=== PATIENT | female | born 1930 | race Caucasian/White ===

== ENCOUNTER 2017-11-26 19:36 | Inpatient (IN) ==
[2017-11-26] MEDS ORDERED: ACETAMINOPHEN 325 MG TABLET PO PRN (20:30)
[2017-11-26] MEDS ORDERED: GLUCAGON 1 MG VIAL IM PRN (20:39)
[2017-11-26] MEDS ORDERED: DEXTROSE 50% 25 GM/50 ML VIAL IV PRN (20:39)
[2017-11-26] MEDS: SODIUM CHLORIDE 0.9% 1,000 ML IV SCH (21:22)
[2017-11-26] MEDS: MORPHINE 2 MG/1 ML SYRINGE IV PRN (22:45)
[2017-11-27] MEDS: INSULIN LISPRO 100 UNIT/ML SUBCUT SCH ×4 (00:35→18:04)
[2017-11-27] MEDS: MORPHINE 2 MG/1 ML SYRINGE IV PRN ×3 (04:08→19:06)
[2017-11-27] MEDS: SODIUM CHLORIDE 0.9% 1,000 ML IV SCH ×4 (05:12→23:10)
[2017-11-27 05:42] LABS: Basophils % 0.2 % (0.0-0.8); Eosinophils # 0.1 10*3/uL (0.0-0.87); Eosinophils % 2.1 % (0.00-10.9); Hematocrit 30.6 VOL% (35.7-47.0); Hemoglobin 10.1 GM/DL (12.0-16.0); Immature Granulocytes % 0.7 %; Immature Granulocytes Absolute 0.04 #; Lymphocytes # 0.8 10*3/uL (1.4-4.0); Lymphocytes % 14.4 % (21.3-54.2); Mean Corpuscular Hemoglobin 29 PG (27-34); Mean Corpuscular Volume 87.7 FL (87-102); Mean Platelet Volume 9.6 FL (9.6-12.0); Monocytes # 0.5 10*3/uL (0.11-0.8); Monocytes % 8.1 % (1.7-12.7); Neutrophils # 4.3 10*3/uL (1.4-7.4); Neutrophils % 74.5 % (38.7-73.9); Platelet Count 170 T/CUMM (130-400); Red Blood Count 3.49 MC/CUMM (3.8-5.5); Red Cell Distribution Width 13.2 % (9.3-17.3); White Blood Count 5.8 T/CUMM (4-12)
[2017-11-27 06:33] LABS: Alanine Aminotransferase 220 U/L (13-56); Albumin 2.9 G/DL (3.4-5.0); Alkaline Phosphatase 222 U/L (45-117); Aspartate Amino Transferase 252 U/L (0-37); Bilirubin,Total < 0.39 MG/DL (0.2-1.0); Blood Urea Nitrogen 28 MG/DL (7-18); Calcium 8.2 MG/DL (8.5-10.1); Glucose 95 MG/DL (74-106); Osmolality,Calculated 286.3 MOS/KG (273-304); Potassium 4.3 MMOL/L (3.5-5.1); Sodium 141 MMOL/L (136-145); Total Protein 5.4 G/DL (6.4-8.3)
[2017-11-27] MEDS: MORPHINE ER 100 MG TABLET PO SCH ×2 (10:43→22:00)
[2017-11-27] MEDS: PANTOPRAZOLE 40 MG TABLET PO SCH (10:43)
[2017-11-27] MEDS: ATORVASTATIN 20 MG TABLET PO SCH (10:43)
[2017-11-27] MEDS: TRIAMTERENE/HCTZ 37.5-25 MG TABLET PO SCH (14:09)
[2017-11-27] MEDS: amLODIPine 5 MG TABLET PO SCH (14:09)
[2017-11-27] MEDS: traZODone 50 MG TABLET PO SCH (20:19)
[2017-11-27] MEDS ORDERED: DULoxetine 30 MG CAPSULE PO SCH (21:00)
[2017-11-28] MEDS: INSULIN LISPRO 100 UNIT/ML SUBCUT SCH ×4 (00:09→19:10)
[2017-11-28] MEDS: MORPHINE 2 MG/1 ML SYRINGE IV PRN ×3 (02:26→18:25)
[2017-11-28] MEDS: SODIUM CHLORIDE 0.9% 1,000 ML IV SCH ×4 (04:22→21:27)
[2017-11-28 05:57] LABS: Basophils % 0.5 % (0.0-0.8); Eosinophils # 0.1 10*3/uL (0.0-0.87); Eosinophils % 2.9 % (0.00-10.9); Hematocrit 29.9 VOL% (35.7-47.0); Hemoglobin 9.9 GM/DL (12.0-16.0); Immature Granulocytes % 1.2 %; Immature Granulocytes Absolute 0.05 #; Lymphocytes # 0.8 10*3/uL (1.4-4.0); Lymphocytes % 19.8 % (21.3-54.2); Mean Corpuscular HGB Conc 33.1 GM/DL (32-36); Mean Corpuscular Hemoglobin 29 PG (27-34); Mean Corpuscular Volume 88.2 FL (87-102); Mean Platelet Volume 9.5 FL (9.6-12.0); Monocytes # 0.4 10*3/uL (0.11-0.8); Monocytes % 10.3 % (1.7-12.7); Neutrophils # 2.7 10*3/uL (1.4-7.4); Neutrophils % 65.3 % (38.7-73.9); Platelet Count 148 T/CUMM (130-400); Red Blood Count 3.39 MC/CUMM (3.8-5.5); Red Cell Distribution Width 13.2 % (9.3-17.3); White Blood Count 4.2 T/CUMM (4-12)
[2017-11-28 06:20] LABS: Albumin 2.8 G/DL (3.4-5.0); Bilirubin,Total 0.7 MG/DL (0.2-1.0); Potassium 3.9 MMOL/L (3.5-5.1); Total Protein 5.2 G/DL (6.4-8.3)
[2017-11-28 06:25] LABS: INR 0.9
[2017-11-28] MEDS: LEVOTHYROXINE 150 MCG TABLET PO SCH (06:32)
[2017-11-28] MEDS ORDERED: LIDOCAINE 2% 5 ML VIAL ONE (09:50)
[2017-11-28] MEDS ORDERED: PROPOFOL 200 MG/20 ML VIAL IV ONE (09:50)
[2017-11-28] MEDS ORDERED: ONDANSETRON 4 MG/2 ML VIAL ONE (13:58)
[2017-11-28] MEDS ORDERED: KETAMINE 500 MG/10 ML VIAL ONE (14:00)
[2017-11-28] MEDS: ONDANSETRON 4 MG/2 ML VIAL IV PRN ×3 (14:01→22:36)
[2017-11-28] MEDS ORDERED: ONDANSETRON 4 MG/2 ML VIAL IV ONE (14:07)
[2017-11-28] MEDS: TRIAMTERENE/HCTZ 37.5-25 MG TABLET PO SCH (16:30)
[2017-11-28] MEDS: ATORVASTATIN 20 MG TABLET PO SCH (16:30)
[2017-11-28] MEDS: MORPHINE ER 100 MG TABLET PO SCH ×2 (16:31→20:52)
[2017-11-28] MEDS: PANTOPRAZOLE 40 MG TABLET PO SCH (16:31)
[2017-11-28] MEDS: amLODIPine 5 MG TABLET PO SCH (16:31)
[2017-11-28] MEDS ORDERED: PROMETHAZINE 25 MG/1 ML VIAL IM ONE (16:36)
[2017-11-28] MEDS: CIPROFLOXACIN INJ 400 MG in PREMIX 1 EACH IV SCH (18:26)
[2017-11-28] MEDS: traZODone 50 MG TABLET PO SCH (20:52)
[2017-11-29] MEDS: INSULIN LISPRO 100 UNIT/ML SUBCUT SCH ×4 (00:34→18:17)
[2017-11-29] MEDS: MORPHINE 2 MG/1 ML SYRINGE IV PRN ×3 (00:58→18:37)
[2017-11-29] MEDS: SODIUM CHLORIDE 0.9% 1,000 ML IV SCH ×3 (04:24→20:50)
[2017-11-29] MEDS: CIPROFLOXACIN INJ 400 MG in PREMIX 1 EACH IV SCH ×2 (05:50→18:17)
[2017-11-29 06:55] LABS: Basophils % 0.1 % (0.0-0.8); Hematocrit 28.5 VOL% (35.7-47.0); Hemoglobin 9.6 GM/DL (12.0-16.0); Immature Granulocytes Absolute 0.08 #; Lymphocytes # 0.9 10*3/uL (1.4-4.0); Lymphocytes % 10.7 % (21.3-54.2); Mean Corpuscular HGB Conc 33.7 GM/DL (32-36); Mean Corpuscular Hemoglobin 29 PG (27-34); Mean Corpuscular Volume 86.1 FL (87-102); Mean Platelet Volume 9.7 FL (9.6-12.0); Monocytes # 0.7 10*3/uL (0.11-0.8); Neutrophils # 6.6 10*3/uL (1.4-7.4); Neutrophils % 80.2 % (38.7-73.9); Platelet Count 165 T/CUMM (130-400); Red Blood Count 3.31 MC/CUMM (3.8-5.5); White Blood Count 8.2 T/CUMM (4-12)
[2017-11-29 07:21] LABS: Calcium 7.8 MG/DL (8.5-10.1); Osmolality,Calculated 281.3 MOS/KG (273-304); Potassium 3.2 MMOL/L (3.5-5.1)
[2017-11-29] MEDS: LEVOTHYROXINE 150 MCG TABLET PO SCH (07:34)
[2017-11-29] MEDS: ATORVASTATIN 20 MG TABLET PO SCH (08:57)
[2017-11-29] MEDS: TRIAMTERENE/HCTZ 37.5-25 MG TABLET PO SCH (08:57)
[2017-11-29] MEDS: PANTOPRAZOLE 40 MG TABLET PO SCH (08:58)
[2017-11-29] MEDS: MORPHINE ER 100 MG TABLET PO SCH ×2 (08:58→21:59)
[2017-11-29] MEDS: amLODIPine 5 MG TABLET PO SCH (08:58)
[2017-11-29] MEDS ORDERED: MAGNESIUM SULF RIDER 4 GM in PREMIX 1 EACH IV ONE (09:01)
[2017-11-29 09:06] LABS: Alanine Aminotransferase 91 U/L (13-56); Albumin 2.8 G/DL (3.4-5.0); Alkaline Phosphatase 160 U/L (45-117); Aspartate Amino Transferase 42 U/L (0-37); Bilirubin,Indirect 0.3 MG/DL (0.0-1.0); Bilirubin,Total < 0.39 MG/DL (0.2-1.0); Total Protein 5.3 G/DL (6.4-8.3)
[2017-11-29] MEDS: POTASSIUM CHLORIDE RIDER 10 MEQ in PREMIX 1 EACH IV SCH ×5 (14:02→17:07)
[2017-11-29] MEDS: traZODone 50 MG TABLET PO SCH (20:25)
[2017-11-30] MEDS: INSULIN LISPRO 100 UNIT/ML SUBCUT SCH ×4 (00:15→17:20)
[2017-11-30] MEDS: MORPHINE 2 MG/1 ML SYRINGE IV PRN (01:03)
[2017-11-30] MEDS: SODIUM CHLORIDE 0.9% 1,000 ML IV SCH ×2 (04:23→08:20)
[2017-11-30 04:52] LABS: Basophils % 0.3 % (0.0-0.8); Eosinophils % 0.2 % (0.00-10.9); Hemoglobin 9.8 GM/DL (12.0-16.0); Immature Granulocytes Absolute 0.06 #; Lymphocytes # 0.8 10*3/uL (1.4-4.0); Lymphocytes % 12.3 % (21.3-54.2); Mean Corpuscular HGB Conc 33.8 GM/DL (32-36); Mean Corpuscular Hemoglobin 29 PG (27-34); Mean Corpuscular Volume 85.8 FL (87-102); Mean Platelet Volume 9.4 FL (9.6-12.0); Monocytes # 0.6 10*3/uL (0.11-0.8); Monocytes % 9.1 % (1.7-12.7); Neutrophils # 4.8 10*3/uL (1.4-7.4); Neutrophils % 77.1 % (38.7-73.9); Platelet Count 154 T/CUMM (130-400); Red Blood Count 3.38 MC/CUMM (3.8-5.5); Red Cell Distribution Width 13.1 % (9.3-17.3); White Blood Count 6.3 T/CUMM (4-12)
[2017-11-30 05:33] LABS: Albumin 2.7 G/DL (3.4-5.0); Bilirubin,Total 0.5 MG/DL (0.2-1.0); Calcium 7.7 MG/DL (8.5-10.1); Osmolality,Calculated 279.3 MOS/KG (273-304); Potassium 3.2 MMOL/L (3.5-5.1); Total Protein 5.2 G/DL (6.4-8.3)
[2017-11-30] MEDS: CIPROFLOXACIN INJ 400 MG in PREMIX 1 EACH IV SCH ×2 (06:25→17:30)
[2017-11-30] MEDS: LEVOTHYROXINE 150 MCG TABLET PO SCH (06:26)
[2017-11-30] MEDS: TRIAMTERENE/HCTZ 37.5-25 MG TABLET PO SCH (09:23)
[2017-11-30] MEDS: PANTOPRAZOLE 40 MG TABLET PO SCH (09:23)
[2017-11-30] MEDS: MORPHINE ER 100 MG TABLET PO SCH ×2 (09:23→20:44)
[2017-11-30] MEDS: MAGNESIUM OXIDE 400 MG TABLET PO SCH ×2 (09:25→20:45)
[2017-11-30] MEDS: ATORVASTATIN 20 MG TABLET PO SCH (09:25)
[2017-11-30] MEDS: amLODIPine 5 MG TABLET PO SCH (09:25)
[2017-11-30] MEDS ORDERED: POTASSIUM CHLORIDE 20 MEQ TABLET PO ONE (13:24)
[2017-11-30] MEDS ORDERED: GLUCAGON 1 MG VIAL IM PRN (16:52)
[2017-11-30] MEDS ORDERED: DEXTROSE 50% 25 GM/50 ML VIAL IV PRN (16:52)
[2017-11-30] MEDS: traZODone 50 MG TABLET PO SCH (20:44)
[2017-12-01] MEDS: INSULIN LISPRO 100 UNIT/ML SUBCUT SCH ×3 (00:17→11:45)
[2017-12-01 05:47] LABS: Calcium 7.8 MG/DL (8.5-10.1); Osmolality,Calculated 276.4 MOS/KG (273-304); Potassium 3.7 MMOL/L (3.5-5.1)
[2017-12-01] MEDS: CIPROFLOXACIN INJ 400 MG in PREMIX 1 EACH IV SCH (06:06)
[2017-12-01] MEDS: LEVOTHYROXINE 150 MCG TABLET PO SCH (06:06)
[2017-12-01 08:10] VITALS: BP 115/66
[2017-12-01] MEDS: ATORVASTATIN 20 MG TABLET PO SCH (08:24)
[2017-12-01] MEDS: MORPHINE ER 100 MG TABLET PO SCH (08:24)
[2017-12-01] MEDS: amLODIPine 5 MG TABLET PO SCH (08:24)
[2017-12-01] MEDS: PANTOPRAZOLE 40 MG TABLET PO SCH (08:24)
[2017-12-01] MEDS: MAGNESIUM OXIDE 400 MG TABLET PO SCH (08:25)
[2017-12-01] MEDS: TRIAMTERENE/HCTZ 37.5-25 MG TABLET PO SCH (08:25)
== END 2017-12-01 12:05 | disposition home or self-care (01) | DRG 445 ==
LOC: EDUNIT# → EDBD → N.ED 19:36 → N.EDINP 20:30 → SUATTDRO 20:30 → N.3E 21:25
PROVIDERS: ADMIT Internal Medicine Cardiovascular Disease; ATTEND Internal Medicine
PROC: ERCPWSP (ICD-10-PCS; 2017-11-28 13:35)